=== PATIENT | female | born 1965 | race Caucasian/White ===

== ENCOUNTER 2025-05-28 14:25 | Outpatient (AMB) | payer OTHER, SELFPAY ==
[2025-05-28 15:11] VITALS: BMI 31.7
--- NOTE | 2025-05-28 15:11 | A.PHYSOV_ITS ---
Vital Signs 05/28/25 15:11 Height 5 ft 3 in Weight 179 lb BMI 31.7 Intake Visit Reasons: Left hip & left shoulder injections Intake Note: Patient is a 60 year old female here for left shoulder and left hip injections. Investigations Consultant Required: No Allergies silver Allergy (Unknown, Verified 05/28/25 15:14) Unknown [facility] Surgical History History of cancer surgery Social History Alcohol intake: current Alcohol intake frequency: holidays/special occasions only Patient Tobacco Use Status: Current someday Tobacco user Physical Exam Vital Signs: BMI result Body Mass Index 31.7 Office Procedures AMB Hip Injection AMB Hip Injection Procedure Details: Left Greater trochanteric bursal injection: The risks, benefits and complications of the left greater trochanteric bursitis/gluteal tendinopathy were discussed with the patient, including but not limited to infection, increased serum glucose, nerve damage, bleeding and pain. All questions were answered to the patient's satisfaction. Verbal consent was obtained. The patient was eager to proceed. Patient was cleansed with Betadine, ethyl chloride was then used to desensitize the skin. Using an a 25-gauge needle 40 mg of Kenalog and 3 mL 2% lidocaine were injected over the greater trochanter of maximal tenderness. The patient tolerated the procedure well without immediate complication. Postinjection instructions were given. Hip (Bursa) Injection - : Left All charges added?: Procedure code (CPT) selection complete AMB Shoulder Injection AMB Shoulder Injection Procedure Details: Left Subacromial injection Procedure: The patient was educated about risks, complications and benefits including but not limited to increased serum glucose, infection, nerve damage, bleeding, tendon/ligament damage and pain. We agree with a subacromial injection is the next best step in the treatment plan. Verbal consent was obtained. Using aseptic technique, the skin was cleansed w ith Betadine. Ethyl chloride was used to desensitize the skin. Using a posterior approach, 40 mg of Kenalog and 3 mL 2% lidocaine were injected using a 25-gauge inch and a half needle into the subacromial space. The patient tolerated the procedure well without immediate complication. Postinjection instructions were given. Shoulder Injection - : Left All charges added?: Procedure code (CPT) selection complete Office Meds Kenalog 40 mg/mL suspension for injection Performing Provider: HOLLY Green Performing Location: [facility] Administered by: HOLLY Green on 05/28/25 16:24 Dose Route Admin Location Dispensed Lot Number Expiration Date [facility] St[employer]ester 40 mg intrabursal 1 mL [id number] [employer] Total Dispensed Waste 1 mL 0 % lidocaine (PF) 20 mg/mL (2 %) injection solution Performing Provider: HOLLY Green Performing Location: [facility] Administered by: HOLLY Green on 05/28/25 16:24 Dose Route Admin Location Dispensed Lot Number Expiration Date [facility] St[employer] 60 mg intrabursal 5 mL [id number] [employer] Total Dispensed Waste 5 mL 40 % Kenalog 40 mg/mL suspension for injection Performing Provider: HOLLY Green Performing Location: [facility] Administered by: HOLLY Green on 05/28/25 16:29 Dose Route Admin Location Dispensed Lot Number Expiration Date [facility] [employer] 40 mg intrabursal 1 mL [id number] [employer] Total Dispensed Waste 1 mL 0 % lidocaine (PF) 20 mg/mL (2 %) injection solution Performing Provider: HOLLY Green Performing Location: [facility] Administered by: HOLLY Green on 05/28/25 16:29 Dose Route Admin Location Dispensed Lot Number Expiration Date [facility] [employer] 60 mg intrabursal 5 mL [id number] [employer] Total Dispensed Waste 5 mL 40 % Assessment & Plan Assessment & Plan (1) Impingement of left shoulder: Code(s): M25.812 - Other specified joint disorders, left shoulder Category: Medical (2) Trochanteric bursitis, left hip: Code(s): M70.62 - Trochanteric bursitis, left hip Category: Medical Plan Ms. Portillo is a 60-year-old female seen in evaluation today for left shoulder impingement as well as left hip bursitis. Today she consented to left hip bursal and subacromial injection. She was given post-injection instructions, recommend: Moist heat compresses for 15 minutes up to 5 times daily. Continue hip abduction exercises as well as rotator cuff exercises. Follow-up with our office as needed. Orders: Orders AMB Hip/Bursa Injection Today M70.62 - Trochanteric bursitis, left hip AMB Shoulder Injection Today M25.812 - Other specified joint disorders, left shoulder Coding Level of Care Code Procedure Only Diagnoses Impingement of left shoulder M25.812 Trochanteric bursitis, left hip M70.62 CPT Codes AMB Hip Injection - Hip/Bursa Injection - 07923: Left ([id number]) AMB Shoulder Injection - Hip/Bursa Injection - 58907: Left ([id number])
--- OUTSIDE RECORDS SUMMARY | 2025-05-28 18:42 | XMS_ITS | Encounter Summary ---
Author Organization [facility] Address [address] [place] [address] Care Team Providers Care Senior Analyst Name Role Phone Reyna Donis MD Primary Care Provider Encounter Details Date Type Department Care Team (Late st Contact Info) Description 04/26/2025 Results Follow-Up Adult [facility] [address] [place] [phone] Mckinley Garcia, RN Social History Tobacco Use Types Packs/Day Years Used Date Smoking Tobacco: Former Cigarettes 2.7 0 02/15/2012 - 11/11/2014 Smokeless Tobacco: Never Alcohol Use Standard Drinks/Week Comments Not Currently 0 (1 standard drink = 0.6 oz pur e alcohol) Housing Instability Answer Date Recorde d Are you worried that in the next 2 months you may not have stable housing? No 11/15/2024 Food Access & Nutrition Answer Date Rec orded Do you have access to a vari ety of food including fruits and vegetables? Yes 11/15/2024 Access to Healthcare Answer Date Record ed Within the last 3 months, ho w many times did you visit the emergency department for your medical care? 0 11/15/2024 Health Literacy Answer Date Recorded How often do you need to hav e someone help you when you read instructions, pamphlets, or other written material from your doctor or pharmacy? Never 11/15/2024 Caregiver: How often do you need to have someone help you when you read instructions, pamphlets, or other written material from your doctor or pharmacy? Not on file 11/15/2024 Financial Risk Answer Date Recorded How hard is it for you to pa y for the very basics like food, housing, medical care, and air conditioning / heating? Not asked 11/15/2024 Transportation Answer Date Recorded Has the lack of transportati on kept you from meetings, work, or from getting things needed for daily living? No Has the lack of transportati on kept you from medical appointments or from getting medications? No 11/15/2024 Social Isolation Answer Date Recorded How often do you feel lonely or isolated from th ose around you? Never 11/15/2024 Food Risk Answer Date Recorded Within the past 12 months we worried whether our food would run out before we got money to buy more. Not asked 11/15/2024 Within the past 12 months th e food we bought just didn't last and we didn't have money to get more. Not asked 11/15/2024 Dependent Care Answer Date Recorded Do you need help finding or paying for care for your loved ones. For example, director child development center or elderly care for an older adult? No 11/15/2024 Education Answer Date Recorded Do you think completing more education or training, like finishing a GED, going to college, or learning a trade, would be helpful for you? No 11/15/2024 Employment and Income Answer Date Recor ded During the last four weeks, have you been actively looking for work? No 11/15/2024 Living Situation Answer Date Recorded What is your living situation? Unrecognized valu e 11/15/2024 Interpersonal Safety Answer Date Record ed Physical Abuse Unrecognized value 11/30/2024 Verbal Abuse Unrecognized value 11/30/2024 Comments No Sex and Gender Information Value Date Recorded Sex Assigned at Not on file Legal Sex Female 10:40 AM EST Gender Identity Not on file Sexual Orientation Not on file documented as of this encounter Plan of Treatment Upcoming Encounters Date Type Department Care Team (Late st Contact Info) Description 06/25/2025 2:30 PM EST Office Visit Adult Medicine - [facility] [address] [place] [phone] Reyna Donis MD [address] [place] [address] documented as of this encounter Visit Diagnoses Not on filedocumented in this encounter Additional Health Concerns Assessment Noted Time PHQ-9 Depression Total Score: 0 11/16/19 25 7:00 PM EDT documented as of this encounter Care Teams Senior Analyst Relationship Specialty Start Date End Date Reyna Donis MD [address] [address] PCP - General Internal Medicine 03/02/22 documented as of this encounter
--- OUTSIDE RECORDS SUMMARY | 2025-05-28 18:42 | XMS_ITS | Clinical Summary ---
Author Organization [facility] [address] [facility] lding Address [address] [place] [address] Phone Care Team Providers Care Activity Leader Name Role Phone Reyna Donis MD Primary Care Provider Allergies Active Allergy Reactions Criticality Noted Date Comments Gold Keratinate Rash Low 09/30/2015 Ibuprofen GI intolerance Low 11/19/2024 Silver Nitrate Rash Low 09/30/2015 Medications hydrOXYzine HCL (ATARAX) 25 mg tabletIndicati ons:Anxiety Take 1 tablet (25 mg total) by mouth at bedtime as needed for anxiety. 90 each 5 Active valsartan (DIOVAN) 80 mg tablet TAKE 1 TABLET BY MOUTH EVERY DAY 90 tablet 5 Active valsartan (DIOVAN) 80 mg tablet TAKE 1 TABLET BY MOUTH 1 TIME EACH DAY. 90 tablet 5 05/06/20 25 Discontinued Active Problems Problem Noted Date Diagnosed Date Chronic pain of both shoulders 03/27/2025 Osteopenia 11/27/2021 Overview (02/21/2024): DXA 07/04- tscore spine -2.0, hip Degenerative disc disease, lumbar 07/23/2020 Lumbar radiculopathy 07/23/2020 Lumbar spondylosis 07/23/2020 Hyperlipidemia 06/22/2019 Overview (02/21/2024): 06/2019 ASCVD risk 2.5% Obesity (BMI 30.0-34.9) 11/26/2018 Essential hypertension 11/21/2018 Situational anxiety 09/02/2017 AV block, 1st degree 07/18/2017 Lung nodule 10/03/2015 Overview (02/21/2024): CT chest 12/02- stable nodule x 4 years no further follow up recommended per radiology Found on PET scan- one on each side. One on left was biopsied in 2012 and was negative for cancer Vaginal polyp 10/03/2015 Overview (02/21/2024): Polyps removed recently Following removal found to have contact dermatitis to silver nitrate Resolved Problems Problem Noted Date Diagnosed Date Resolved Date Pain in right foot 09/19/2024 5 Bunion, right foot 09/19/2024 5 Hav (hallux abducto valgus), right 09/19/2024 11/30/2024 Encounters Date Type Department Care Team Description 04/26/2025 Results Follow-Up [facility] [address] [place] [address] Mckinley Garcia RN 04/23/2025 3:00 PM EST Ancillary Procedure [facility] [address] [facility] [address] [place] [address] Palpitations 03/27/2025 3:30 PM EDT Office Visit Adult Medicine [facility] [address] [place] [address] Osvaldo Jha PA Essential hypertension (Primary Dx); Hyperlipidemia, unspecified hyperlipidemia type; Chronic pain of both shoulders; Status post bunionectomy; Palpitations; Needs flu shot; Anxiety from Last 3 Months Immunizations Immunization Administration Dates Next Due COVID-19 (Moderna/Spikevax) 12yo and older 03/31/2023 Influenza Quadravalent, MDCK , 0.5ml, preservative free (Flucelvax) 6mo and older 03/15/2018 Influenza Quadrivalent, 0.5m l, preservative free (Fluarix; FluLaval; Fluzone) ages 6mo and older (Afluria) 3yo and older 03/31/2023,03/05/2022,03/22/2021 Influenza Quadrivalent, with preservative (Fluzone; Afluria) 6mo and older 04/05/2017 Influenza trivalent, 0.5mL, preservative free (Fluarix; FluLaval; Fluzone) ages 6mo and older (Afluria) 3 years and older 03/12/2024,03/31/2023,03/05/2022,2020,03/27/2020,03/27/2019,04/05/2017 Influenza trivalent, MDCK, 0 .5mL, preservative free (Flucelvax) 6mo and older 03/27/2025 Moderna SARS-CoV-2 COVID-19, mRNA, LNP-S, preservative free 03/05/2022 Pfizer (ages 12 & older) Biv alent, COVID-19 03/05/2022 Pfizer (ages 12 & older) MIGUEL ANGEL S-CoV-2 COVID-19, mRNA, LNP-S, nic-sucrose, preservative free 10/03/2021 Tdap Tetanus diptheria acell ular pertussis (Boostrix; Adacel) 7yo and older 02/27/2021 Surgical History Surgery Date Site/Laterality Comments HYSTERECTOMY PROCEDURE: HISTORICAL HYSTERECTOMY; COMMENT: salphingoophorectlony b/l TONSILLECTOMY PROCEDURE: HISTORICAL TONSILLECTOMY BREAST LUMPECTOMY PROCEDURE: ---- BREAST LUMP BIOPSY ----; COMMENT: negative for cancer COLONOSCOPY PROCEDURE: HISTORICAL COLONOSCOPY; COMMENT: around late 28 yrs and was negative for abdominal pain COLONOSCOPY 10/30/15 PROCEDURE: HISTORICAL COLONOSCOPY; COMMENT: Diverticulosis, hemorrhoids, otherwise normal. Rpt in 10 years BREAST BIOPSY 16 years ago Right PROCEDURE: BX BREAST; PERC NEEDLE CORE W/IMAG GUID; COMMENT: neg Medical History Medical History Date Comments History of cervical cancer 09/04/2015 DX:Hi story of cervical cancer; COMMENT: Apr 2013, had radical hysterectomy- done by Dr Sethi. History of other specified c onditions presenting hazards to health DX:History of other speci fied conditions presenting hazards to health; COMMENT: cervical AV block, 1st degree 07/18/2017 DX:AV block , 1st degree Hypertension 11/21/2018 DX:Hypertension Cancer ([facility]/HCC V24, CMS/HCC V28) Bunion of right foot Family History Medical History Relation Name Comments Crohn's disease Daughter 1 Brittany sudden Other: Other Daughter 1 Birttany Other: drug overdose Son 1 Blindness Neg Hx Breast cancer Neg Hx Cataracts Neg Hx Glaucoma Neg Hx Macular degeneration Neg Hx Strabismus Neg Hx Relation Name Status Comments Daughter 1 Brittany Daughter 2 Alive Father [place], in his 40s from [place] Mother at 84 yrs, stomach cancer Son 1 Son 2 Alive Social History Tobacco Use Types Packs/Day Years Used Date Smoking Tobacco: Former Cigarettes 2.7 0 02/15/2012 - 11/11/2014 Smokeless Tobacco: Never Tobacco Cessation:Counseling Given: Not Answered Alcohol Use Standard Drinks/Week Comments Not Currently [...] care for your loved ones. For example, childcare director or elderly care for an older adult? [...] on file Sexual Orientation Not on file Last Filed Vital Signs Vital Sign Reading Time Taken Comments Blood Pressure 137/87 03/27/2025 3:17 PM EDT Pulse 80 03/27/2025 3:17 PM EDT Temperature 36.4 C (97.5 F) 03/27/2025 3:17 PM EDT Respiratory Rate 18 11/30/2024 8:49 AM EDT Oxygen Saturation 99% 11/30/2024 9:34 AM EDT Inhaled Oxygen Concentration - - Weight 80.7 kg (178 lb) 03/27/2025 3:17 PM EDT Height 160 cm (5' 3 ) 03/27/2025 3:17 PM EDT Body Mass Index 31.53 03/27/2025 3:17 PM EDT Plan of Treatment Upcoming Encounters Date Type Department Care Team (Late st Contact Info) Description 06/25/2025 2:30 PM EST Office Visit Adult Medicine - [place] [address] [place] [address] Reyna Donis MD [address] [place] [address] Health Maintenance Due Date Last Done Comments Zoster Vaccines (1 of 2) 1982 Pneumococcal Vaccine: 50+ Years (1 of 1 - PCV) 2013 HIV Screening 05/22/2022 COVID-19 Vaccine ( season) 2025 03/31/2023, 03/05/2022, 03/05/2022, Additional history exists Hypertension/CHF/CAD Annual BMP Blood Test 06/18/2025 06/18/2024, 06/15/2023 Breast Cancer Screening 09/21/2025 09/22/19 24, 03/20/2022, 03/20/2022, Additional history exists Colorectal Cancer Screening: Colonoscopy 10/29/2025 10/30/2015 Social Influencers of Health Screening 11/15/2025 11/15/2024 Cervical Cancer Screening: HPV 06/23/2027 06/23/2022 Cholesterol Screening (Lipid Panel) 06/18/2029 06/18/2024, 12/14/2023, 12/14/2023 DTaP,Tdap,and Td Vaccines (2 - Td or Tdap) 02/27/2031 02/27/2021 RSV Immunization Adult Patients (1 - 1-dose 75+ series) 2038 Hepatitis C Screening Completed 10/03/2015 Depression Screening Completed 11/15/2024 Influenza Vaccine Completed 03/27/2025, , 03/31/2023, Additional history exists HIB Vaccines Aged Out No longer eligi ble based on patient's age to complete this topic HPV Vaccines Aged Out No longer eligi ble based on patient's age to complete this topic Hepatitis A Vaccines Aged Out No long er eligible based on patient's age to complete this topic Hepatitis B Vaccines Aged Out No long er eligible based on patient's age to complete this topic IPV Vaccines Aged Out No longer eligi ble based on patient's age to complete this topic MMR Vaccines Aged Out No longer eligi ble based on patient's age to complete this topic Meningococcal ACWY Vaccine Aged Out N o longer eligible based on patient's age to complete this topic Meningococcal B Vaccine Aged Out No l onger eligible based on patient's age to complete this topic RSV Immunization Patients Under 20 months Aged Out No longer eligible based on patient's age to complete this topic Varicella Vaccines Aged Out No longer eligible based on patient's age to complete this topic Medical Devices Implanted Type Area Engineering Documentation Specialist Device Identifier Shelf Expiration Date Model / Serial / Lot Screw 3.0mm Headless Length 32mm - Sna - [id number] Implanted:Qty: 1 on 11/30/2024 by Zachery Patino DPM at [facility] Internal and External Fixation Right: First Toe [employer]ERNA [employer]UMA [id number] / NA / NA Procedures Procedure Name Priority Date/Time Associated Diagnosis Comments CARDIAC HOLTER MONITOR (REPORT GENERATED IN HOUSE) Routine 04/23/2025 2:43 PM EST Palpitations COMPREHENSIVE METABOLIC PANEL Routine 06/18/2024 4:10 PM EST Adult general medical examination Hyperlipidemia, unspecified hyperlipidemia type Essential hypertension LIPID PANEL WITH REFLEX TO DIRECT LDL Routine 06/18/2024 4:10 PM EST Adult general medical examination Hyperlipidemia, unspecified hyperlipidemia type Essential hypertension SHALINI SCREENING DIGITAL Routine 09/22/2023 2:28 PM EDT Encounter for screening mammogram for malignant neoplasm of breast HM HPV Routine 06/23/2022 COLONOSCOPY Routine 10/30/2015 HEPATITIS C SCREENING Routine 10/03/2015 from Last 3 Months or Most Recently Relevant to Health Maintenance Results * CARDIAC HOLTER MONITOR (REPORT GENERATED IN HOUSE) (04/23/2025 2:43 PM EST) Anatomical Region Laterality Modality Cardiac Diagnost ic Narrative 04/26/2025 11:28 AM EST [facility] DIAGNOSTIC [facility]ING DEPARTMENT [address] [place] [address], [address] [address] TEL: FAX: Type of Test: 48 Hour Holter Monitor Date of Test: 04/23/2025 Ordering Provider: HOLLY Caruso Reason for Test: Palpitations 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 2: Rare PACs, aberrant beats, atrial pairs, and atrial runs lasting up to 5 beats with rates up to 148 bpm. 3: Rare PVCs. 4: No significant pause, longest R-R was 1.4 seconds at 3:23 AM. 5: Diary returned with no symptoms noted. Impression: Normal sinus rhythm with rare PACs and 1 5 beat atrial run. No atrial fibrillation. Rare PVCs. No pauses or bradycardia. Ovsaldo BARRERA [facility] PROCEDURE S Final Result * (ABNORMAL) Lipid panel with reflex to direct LDL (06/18/2024 4:10 PM EST) Cholesterol 258(H) 0 - 200 mg/dL LAB CHEMISTRY METHOD 06/18/2024 6:38 PM [facility] Triglycerides 85 0 - 150 mg/dL LAB CHEMISTRY METHOD 06/18/2024 6:38 PM [facility] HDL 71 >=40 mg/dL LAB CHEMISTRY METHOD 06/18/2024 6:38 PM [facility] LDL Calculated 170(H) 0 - 100 mg/dL LAB CHEMISTRY METHOD 06/18/2024 6:38 PM [facility] VLDL Cholesterol Tre 17 mg/dL LAB CHEMISTRY METHOD 06/18/2024 6:38 PM [facility] Non HDL Chol. (LDL+VLDL) 187(H) <145 mg/dL LAB CHEMISTRY METHOD 06/18/2024 6:38 PM [facility] Chol/HDL Ratio 3.6 0.0 - 4.4 LAB CHEMISTRY METHOD 06/18/2024 6:38 PM [facility] Blood Venous blood specimen / Unknown Venipuncture / Unknown 06/18/2024 4:10 PM EST 06/18/2024 4:10 PM EST Osvaldo BARRERA LAB BLOOD ORDERABLES Final Re sult [facility] [address] [place] [address], * (ABNORMAL) Comprehensive metabolic panel (06/18/2024 4:10 PM EST) Sodium 135 133 - 145 mmol/L LAB CHEMISTRY METHOD 06/18/2024 6:38 PM EST [facility] Potassium 3.8 3.5 - 5.5 mmol/L LAB CHEMISTRY METHOD 06/18/2024 6:38 PM [facility] Chloride 103 96 - 110 mmol/L LAB CHEMISTRY METHOD 06/18/2024 6:38 PM [facility] CO2 28 21 - 32 mmol/L LAB CHEMISTRY METHOD 06/18/2024 6:38 PM [facility] Anion Gap 4 3 - 11 LAB CHEMISTRY METHOD 06/18/2024 6:38 PM [facility] Glucose 103(H) 70 - 100 mg/dL LAB CHEMISTRY METHOD 06/18/2024 6:38 PM [facility] BUN 14 5 - 25 mg/dL LAB CHEMISTRY METHOD 06/18/2024 6:38 PM [facility] Creatinine 0.78 0.50 - 1.10 mg/dL LAB CHEMISTRY METHOD 06/18/2024 6:38 PM [facility] eGFR 87 >=60 mL/min/1. 73m2 LAB CHEMISTRY METHOD 06/18/2024 6:38 PM [facility] Comment:Calculation based on the Chronic Kidney Disease Epidemiology Collaboration (CKD-EPI) equation refit without adjustment for race. BUN/Creatinine Ratio 17.9 LAB CHEMISTRY METHOD 06/18/2024 6:38 PM [facility] Calcium 9.3 8.5 - 10.5 mg/dL LAB CHEMISTRY METHOD 06/18/2024 6:38 PM [facility] AST (SGOT) 17 10 - 42 unit/L LAB CHEMISTRY METHOD 06/18/2024 6:38 PM [facility] ALT (SGPT) 31 10 - 60 unit/L LAB CHEMISTRY METHOD 06/18/2024 6:38 PM [facility] Alkaline Phosphatase 50 42 - 121 unit/L LAB CHEMISTRY METHOD 06/18/2024 6:38 PM [facility] Total Protein 6.7 6.0 - 8.0 g/dL LAB CHEMISTRY METHOD 06/18/2024 6:38 PM EST [facility] Albumin 3.9 3.2 - 5.0 g/dL LAB CHEMISTRY METHOD 06/18/2024 6:38 PM [facility] Total Bilirubin 1.2 0.0 - 1.4 mg/dL LAB CHEMISTRY METHOD 06/18/2024 6:38 PM [facility] Blood Venous blood specimen / Unknown Venipuncture / Unknown 06/18/2024 4:10 PM EST 06/18/2024 4:10 PM EST us Osvaldo BARRERA LAB BLOOD ORDERABLES Final Re sult [facility] [address] [place] [address], * SHALINI SCREENING DIGITAL (09/22/2023 2:28 PM EDT) Anatomical Region Laterality Modality Mammography 09/21/2023 2:18 PM EDT Narrative 09/22/2023 2:28 PM EDT [facility] Diagnostic Imaging Department [address] [place] [address] Patient: KYA CEDENO D.O.B./Age/Sex: 1965 - 58 - F Unit#: [id number] Location/Status: SPDIMAM/REG CLI Mnemonic/Ordering Site: [facility] Ordering Physician: MAGGIE NICHOLE CNM [facility] Screening Digital - 09/21/23 - 1435 Report Status:Signed EXAM: [facility] Screening Digital EXAM DATE AND TIME: 09/21/2023 2:59 PM HISTORY: Annual screening COMPARISON: Multiple exams dating back to 2015 TECHNIQUE: Bilateral digital breast tomosynthesis was performed in the CC and MLO projections. Computer aided detection with [employer] 3D 3.1 was employed. TISSUE DENSITY: b. There are scattered areas of fibroglandular density. FINDINGS: No suspicious masses, grouped microcalcifications, or areas of architectural distortion are seen. The skin and vascularity are unremarkable. IMPRESSION: Stable mammographic appearance of the breasts. No evidence of malignancy is seen. A negative mammogram in the presence of a clinically suspicious palpable abnormality does not preclude the possibility of malignancy or alter the indications for biopsy. BI-RADS: Category 1: Negative RECOMMENDATION(S): 1: Routine screening mammogram BILATERAL in 1 year. 3341F, 7025F Dictating Physician: MAE DIOR MD Electronically Signed by: MAE DIOR MD Dic Date/Time: 09/22/23 1427 Sign date/Time: 09/22/23 1428 Procedure Note Mea Dior MD - 01/30/2024 [facility] Diagnostic Imaging Department [address] [place] [id number] Patient: KYA CEDENO /Age/Sex: 1965 - 58 - F Unit#: [id number] Location/Status: SPDIMAM/REG CLI Mnemonic/Ordering Site: [facility] Ordering Physician: MAGGIE NICHOLE CNM [facility] Screening Digital - 09/21/23 - 1435 Report Status:Signed EXAM: [facility] Screening Digital EXAM DATE AND TIME: 09/21/2023 2:59 PM HISTORY: Annual screening COMPARISON: Multiple exams dating back to 2015 TECHNIQUE: Bilateral digital breast tomosynthesis was performed in the CCand MLO projections. Computer aided detection with [employer] 3D 3.1was employed. TISSUE DENSITY: b. There are scattered areas of fibroglandular density. FINDINGS: No suspicious masses, grouped microcalcifications, or areas ofarchitectural distortion are seen. The skin and vascularity are unremarkable. IMPRESSION: Stable mammographic appearance of the breasts. No evidence of malignancyis seen. A negative mammogram in the presence of a clinically suspicious palpable abnormality does not preclude the possibility of malignancy or alter the indications for biopsy. BI-RADS: Category 1: Negative RECOMMENDATION(S): 1: Routine screening mammogram BILATERAL in 1 year. 3341F, 7033F Dictating Physician: MAE DIOR MD Electronically Signed by: MAE DIOR MD Dic Date/Time: 09/22/23 1427 Sign date/Time: 09/22/23 1428 Maggie Nichole CNM IMG BI PROCEDURES Final Resul t * Cervical Cancer Screening: HPV (06/23/2022) Cervical Cancer Screening: HPV Negative, Abstracted Historical Provider HEALTH MAINTENANCE Final Result * Colonoscopy (10/30/2015) Colonoscopy 10 yr fu Anatomical Region Laterality Modality Other Historical Provider HEALTH MAINTENANCE Final Result * Hepatitis C Screening (10/03/2015) Hepatitis C Screening negative Historical Provider HEALTH MAINTENANCE Final Result from Last 3 Months or Most Recently Relevant to Health Maintenance Insurance [facility] [address] [place] [address] Advance Directives * Full Code - Default (Latest Code Status on File) Date Activated Date Inactivated Comments 11/30/2024 6:02 AM 11/30/2024 12:38 PM This is ord er is used when code status has not been discussed with the patient, or code status is otherwise unknown/unconfirmed To update the patient's code status, place a code status order. Do not modify or discontinue any currently active code status orders. Care Teams Activity Leader Relationship Specialty Start Date End Date Reyna Donis MD [address] [place] [address] [address] [place] [address] PCP - General Internal Medicine 03/02/22
== END 2025-05-28 16:21 | disposition home or self-care (01) ==
LOC: HO.HPHYS 14:26
PROVIDERS: PCP Family Medicine; Visit Provider Physician Assistant
DX: M25.812 Other specified joint disorders, left shoulder (principal); M70.62 Trochanteric bursitis, left hip
CPT/HCPCS: 20610

== ENCOUNTER → 2025-05-28 14:25 | Outpatient (BNVA) | payer OTHER, SELFPAY | PROVIDERS: PCP Family Medicine; Visit Provider Physician Assistant | DX: M25.812 Other specified joint disorders, left shoulder (principal); M70.62 Trochanteric bursitis, left hip | CPT/HCPCS: 20610; J2003; J3301 ==

== ENCOUNTER 2025-06-12 09:41 | Outpatient (AMB) | payer OTHER, SELFPAY ==
[2025-06-12 09:57] VITALS: BMI 31.7
--- NOTE | 2025-06-12 09:57 | A.PHYSOV_ITS ---
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: No Allergies silver Allergy (Unknown, Verified 06/12/25 09:58) Unknown REPLACED BY [facility] Surgical History History of cancer surgery Social History Alcohol intake: current Alcohol intake frequency: holidays/special occasions only Patient Tobacco Use Status: Current someday Tobacco user Physical Exam Vital Signs: BMI result Body Mass Index 31.7 Office Procedures AMB Hip Injection AMB Hip Injection Procedure Details: Right Greater trochanteric bursal injection: The risks, benefits and complications of the right greater trochanteric bursitis/gluteal tendinopathy were discussed with the patient, including but not limited to infection, increased serum glucose, nerve damage, bleeding and pain. All questions were answered to the patient's satisfaction. Verbal consent was obtained. The patient was eager to proceed. Patient was cleansed with Betadine, ethyl chl oride was then used to desensitize the skin. Using an a 25-gauge needle 40 mg of Kenalog and 3 mL 2% lidocaine were injected over the greater trochanter of maximal tenderness. The patient tolerated the procedure well without immediate complication. Postinjection instructions were given. Hip (Bursa) Injection - : Right All charges added?: Procedure code (CPT) selection complete AMB Shoulder Injection AMB Shoulder Injection Procedure Details: Right Subacromial injection Procedure: The patient was educated about risks, complications and benefits including but not limited to increased serum glucose, infection, nerve damage, bleeding, tendon/ligament damage and pain. We agree with a subacromial injection is the next best step in the treatment plan. Verbal consent was obtained. Using aseptic technique, the skin was cleansed with Betadine. Ethyl chloride was used to desensitize the skin. Using a posterior approach, 40 mg of Kenalog and 3 mL 2% lidocaine were injected using a 25-gauge inch and a half needle into the subacromial space. The patient tolerated the procedure well without immediate complication. Postinjection instructions were given. Shoulder Injection - : Right All charges added?: Procedure code (CPT) selection complete Office Meds Kenalog 40 mg/mL suspension for injection Performing Provider: HOLLY Green Performing Location: [facility] Administered by: HOLLY Green on 06/12/25 12:49 Dose Route Admin Location Dispensed Lot Number Expiration Date [facility] Building Maintenance Worker 40 mg intrabursal 1 mL [id number] [employer] Total Dispensed Waste 1 mL 0 % lidocaine (PF) 20 mg/mL (2 %) injection solution Performing Provider: HOLLY Green Performing Location: [facility] Administered by: HOLLY Green on 06/12/25 12:49 Dose Route Admin Location Dispensed Lot Number Expiration Date [facility] Building Maintenance Worker 60 mg intrabursal 5 mL [id number] [employer] Total Dispensed Waste 5 mL 40 % Kenalog 40 mg/mL suspension for injection Performing Provider: HOLLY Green Performing Location: [facility] Administered by: HOLLY Green on 06/12/25 12:49 Dose Route Admin Location Dispensed Lot Number Expiration Date [facility] Building Maintenance Worker 40 mg intrabursal 1 mL [id number] [employer] Total Dispensed Waste 1 mL 0 % lidocaine (PF) 20 mg/mL (2 %) injection solution Performing Provider: HOLLY Green Performing Location: [facility] Administered by: HOLLY Green on 06/12/25 12:49 Dose Route Admin Location Dispensed Lot Number Expiration Date [facility] Building Maintenance Worker 60 mg intrabursal 5 mL [id number] [employer] Total Dispensed Waste 5 mL 40 % Assessment & Plan Assessment & Plan (1) Impingement of right shoulder: Code(s): M25.811 - Other specified joint disorders, right shoulder Category: Medical (2) Trochanteric bursitis, right hip: Code(s): M70.61 - Trochanteric bursitis, right hip Category: Medical Plan Ms. Anaya is a 60-year-old female seen in evaluation today for right shoulder impingement as well as right hip bursitis. Today she consented to repeat subacromial and hip bursal injection. She was given post-injection i nstructions, recommend: Moist heat compresses for 15 minutes up to 5 times daily. She should avoid repetitive overhead activities. Continue abduction exercises. Follow-up with our office as needed. Thank you for allowing me to participate in the care of your patient. Orders: Orders AMB Shoulder Injection Today M25.811 - Other specified joint disorders, right shoulder AMB Hip/Bursa Injection Today M70.61 - Trochanteric bursitis, right hip Coding Level of Care Code Procedure Only Diagnoses Impingement of right shoulder M25.811 Trochanteric bursitis, right hip M70.61 CPT Codes AMB Hip Injection - Hip/Bursa Injection - 65927: Right ([id number]) AMB Shoulder Injection - Hip/Bursa Injection - 06558: Right ([id number])
--- OUTSIDE RECORDS SUMMARY | 2025-06-12 10:13 | XMS_ITS | Clinical Summary ---
Author Organization [facility] [address] [facility] lding Address [address] [facility] [place] [address] Phone Care Team Providers Care Furnace Setter Name Role Phone Reyna Donis MD Primary Care Provider Allergies Active Allergy Reactions Criticality Noted Date Comments Gold Keratinate Rash Low 09/30/2015 Ibuprofen GI intolerance Low 11/19/2024 Silver Nitrate Rash Low 09/30/2015 Medications hydrOXYzine HCL (ATARAX) 25 mg tabletIndicatio ns:Anxiety Take 1 tablet (25 mg total) by mouth at bedtime as needed for anxiety. 90 each 03/27/2025 Active valsartan (DIOVAN) 80 mg tablet TAKE 1 TABLET BY MOUTH EVERY DAY 90 tablet 05/06/2025 Active Active Problems Problem Noted Date Diagnosed Date [...] Team Description 04/26/2025 Results Follow-Up [facility] [address] [phone] Mckinley Garcia RN 04/23/2025 3:00 PM EST Ancillary Procedure [facility] [address] [place] [address] Palpitations 03/27/2025 3:30 PM EDT Office Visit Adult Medicine [address] [phone] Osvaldo Jha PA Essential hypertension (Primary Dx); [...] , 1st degree Hypertension 11/21/2018 DX:Hypertension Cancer ([facility] V24, [facility] V28) Bunion of right foot Family History Medical History Relation Name Comments Crohn's disease Daughter 1 Brittany sudden Other: Other Daughter 1 Brittany Other: drug overdose Son 1 Blindness Neg [...] Record ed Within the last 3 months, terry florez many times did you visit the emergency [...] care for your loved ones. For example, children's literature professor or elderly care for an older adult? [...] PM EST Office Visit Adult Medicine - [place] [address] [place] [address] Reyna Donis MD [address] [place] [address] Health Maintenance Due Date Last Done Comments [...] this topic Medical Devices Implanted Type Area Acting Teacher Device Identifier Shelf Expiration Date Model / Serial / Lot Screw 3.0mm Headless Length 32mm - Sna - [id number] Implanted:Qty: 1 on 11/30/2024 by Zachery Patino DPM at [facility] Internal and External Fixation Right: First Toe [employer] [id number] / NA / NA Procedures Procedure Name [...] examination Hyperlipidemia, unspecified hyperlipidemia type Essential hypertension [facility] SCREENING DIGITAL Routine 09/22/2023 2:28 PM EDT Encounter for screening mammogram for malignant neoplasm of breast HPV Routine 06/23/2022 COLONOSCOPY Routine 10/30/2015 HEPATITIS C SCREENING Routine 10/03/2015 from Last 3 Months or Most Recently Relevant to Health Maintenance Results * CARDIAC HOLTER MONITOR (REPORT GENERATED IN HOUSE) (04/23/2025 2:43 PM EST) Anatomical Region Laterality Modality Cardiac Diagnost ic Narrative 04/26/2025 11:28 AM EST [facility] DI[facility]PARTMENT [address] [place] [address], [place] [address], [place] [address] TEL: FAX: Type of Test: 48 Hour Holter Monitor Date of Test: 04/23/2025 Ordering Provider: HOLLY Caruso Reason for Test: Palpitations [facility] Regulatory Affairs Spec Findings: 1: Normal Sinus Rhythm. 2: Rare [...] fibrillation. Rare PVCs. No pauses or bradycardia. Osvaldo BARRERA [facility] CARDIAC SERVICES PROCEDURE S Final Result * (ABNORMAL) Lipid panel with reflex to direct LDL (06/18/2024 4:10 PM EST) Cholesterol 258(H) 0 - 200 mg/dL LAB CHEMISTRY METHOD 06/18/2024 6:38 PM EST [facility] Triglycerides 85 0 - 150 mg/dL LAB CHEMISTRY METHOD 06/18/2024 6:38 PM EST [facility] HDL 71 >=40 mg/dL LAB CHEMISTRY METHOD 06/18/2024 6:38 PM EST [facility] LDL Calculated 170(H) 0 - 100 mg/dL LAB CHEMISTRY METHOD 06/18/2024 6:38 PM EST [facility] VLDL Cholesterol Tre 17 mg/dL LAB CHEMISTRY METHOD 06/18/2024 6:38 PM EST [facility] Non HDL Chol. (LDL+VLDL) 187(H) <145 mg/dL LAB CHEMISTRY METHOD 06/18/2024 6:38 PM EST [facility] Chol/HDL Ratio 3.6 0.0 - 4.4 LAB CHEMISTRY METHOD 06/18/2024 6:38 PM [facility] Blood Venous blood specimen / Unknown Venipuncture / Unknown 06/18/2024 4:10 PM EST 06/18/2024 4:10 PM EST Osvaldo BARRERA LAB BLOOD ORDERABLES Final Re sult [facility] [address] [place] [address], [place] [phone] * (ABNORMAL) Comprehensive metabolic panel (06/18/2024 4:10 PM EST) Sodium 135 133 - 145 mmol/L LAB CHEMISTRY METHOD 06/18/2024 6:38 PM [facility] Potassium 3.8 3.5 - 5.5 mmol/L LAB CHEMISTRY METHOD 06/18/2024 6:38 PM [facility] Chloride 103 96 - 110 mmol/L LAB CHEMISTRY METHOD 06/18/2024 6:38 PM [facility] CO2 28 21 - 32 mmol/L LAB CHEMISTRY METHOD 06/18/2024 6:38 PM [facility] Anion Gap 4 3 - 11 LAB CHEMISTRY METHOD 06/18/2024 6:38 PM [facility] Glucose 103(H) 70 - 100 mg/dL LAB CHEMISTRY METHOD 06/18/2024 6:38 PM [facility] BUN 14 5 - 25 mg/dL LAB CHEMISTRY METHOD 06/18/2024 6:38 PM [facility] Creatinine 0.78 0.50 - 1.10 mg/dL LAB CHEMISTRY METHOD 06/18/2024 6:38 PM [facility] eGFR 87 >=60 mL/min/1. 73m2 LAB CHEMISTRY METHOD 06/18/2024 6:38 PM [facility] Comment:Calculation based on the Chronic Kidney Disease Epidemiology Collaboration (CKD-EPI) equation refit without adjustment for race. BUN/Creatinine Ratio 17.9 LAB CHEMISTRY METHOD 06/18/2024 6:38 PM [facility] Calcium 9.3 8.5 - 10.5 mg/dL LAB CHEMISTRY METHOD 06/18/2024 6:38 PM [facility] AST (SGOT) 17 10 - 42 unit/L LAB CHEMISTRY METHOD 06/18/2024 6:38 PM [facility] ALT (SGPT) 31 10 - 60 unit/L LAB CHEMISTRY METHOD 06/18/2024 6:38 PM EST [facility] Alkaline Phosphatase 50 42 - 121 unit/L LAB CHEMISTRY METHOD 06/18/2024 6:38 PM EST [facility] Total Protein 6.7 6.0 - 8.0 g/dL LAB CHEMISTRY METHOD 06/18/2024 6:38 PM EST [facility] Albumin 3.9 3.2 - 5.0 g/dL LAB CHEMISTRY METHOD 06/18/2024 6:38 PM EST [facility] Total Bilirubin 1.2 0.0 - 1.4 mg/dL LAB CHEMISTRY METHOD 06/18/2024 6:38 PM [facility] Blood Venous blood specimen / Unknown Venipuncture / Unknown 06/18/2024 4:10 PM EST 06/18/2024 4:10 PM EST Osvaldo BARRERA LAB BLOOD ORDERABLES Final Re sult [facility] [address] [place] [address], * SHALINI SCREENING DIGITAL (09/22/2023 2:28 PM EDT) Anatomical Region Laterality Modality Mammography 09/21/2023 2:18 PM EDT Narrative 09/22/2023 2:28 PM EDT [facility] Diagnostic Imaging Department [address] [place] [address] Patient: KYA CEDENOO.B./Age/Sex: 1965 - 58 - F Unit#: [id number] Location/Status: SPDIMAM/REG CLI Mnemonic/Ordering Site: [facility] Ordering Physician: MAGGIE NICHOLE CNM [facility] Screening Digital - 09/21/23 - 1435 Report Status:Signed EXAM: [facility] Screening Digital EXAM DATE AND TIME: 09/21/2023 2:59 PM HISTORY: Annual screening COMPARISON: Multiple exams dating back to 2015 TECHNIQUE: Bilateral digital breast tomosynthesis was performed in the CC and MLO projections. Computer aided detection with NUOFFER 3D 3.1 was employed. TISSUE DENSITY: b. [...] Signed by: MAE DIOR MD Dic Date/Time: 09/22/231426 Sign date/Time: 09/22/231427 Procedure Note Mae Dior MD - 01/30/2024 [facility] Diagnostic Imaging Department [address] [place], [place] [id number] Patient: KYA CEDENO/Age/Sex: 1965 - 58 - F Unit#: [id number] Location/Status: SPDIMAM/REG CLI Mnemonic/Ordering Site: [facility] Ordering Physician: MAGGIE NICHOLE CNM [facility] Screening Digital - 09/21/23 - 1435 Report Status:Signed EXAM: [facility] Screening Digital EXAM DATE AND TIME: 09/21/2023 2:59 PM HISTORY: Annual screening COMPARISON: Multiple exams dating back to 2015 TECHNIQUE: Bilateral digital breast tomosynthesis was performed in the CCand MLO projections. Computer aided detection with NUOFFER 3D 3.1was employed. TISSUE DENSITY: b. There [...] Signed by: MAE DIOR MD Dic Date/Time: 09/22/237 Sign date/Time: 09/22/23 1428 Maggie Nichole CNM IMG BI PROCEDURES Final Resul t * Cervical Cancer Screening: HPV (06/23/2022) Pathologist [facility] Cervical Cancer Screening: HPV Negative, Abstracted Historical Provider HEALTH MAINTENANCE Final Result * Colonoscopy (10/30/2015) Pathologist [facility] Colonoscopy 10 yr fu Anatomical Region Laterality Modality Other Historical Provider HEALTH MAINTENANCE Final Result * Hepatitis C Screening (10/03/2015) Hepatitis C Screening negative Historical Provider HEALTH MAINTENANCE Final Result from Last 3 Months or Most Recently Relevant to Health Maintenance Insurance [facility] [address] [place] [address] Advance Directives * Full Code - Default [...] currently active code status orders. Care Teams Furnace Setter Relationship Specialty Start Date End Date Reyna Donis MD [address] [place] [address] [address] [place] [address] PCP - General Internal Medicine 03/02/22
--- OUTSIDE RECORDS SUMMARY | 2025-06-12 10:13 | XMS_ITS | Encounter Summary ---
Author Organization [facility] Address [address] [place] [address] Care Team Providers Care Wind Projects Supervisor Name Role Phone Reyna Donis MD Primary Care Provider Encounter Details Date Type Department Care Team (Late st Contact Info) Description 04/26/2025 Results Follow-Up Adult [facility] [address] [place] [phone] Mckinley Garcia, RN Social History Tobacco Use [...] care for your loved ones. For example, child welfare worker or elderly care for an older adult? [...] PM EST Office Visit Adult Medicine - [place] [address] [place] [phone] Reyna Donis MD [address] [place] [address] documented as of this encounter Visit Diagnoses Not on filedocumented in this encounter Additional Health Concerns Assessment Noted Time PHQ-9 Depression Total Score: 0 11/16/19 25 7:00 PM EDT documented as of this encounter Care Teams Wind Projects Supervisor Relationship Specialty Start Date End Date Reyna Donis MD [address] [address] PCP - General Internal Medicine 03/02/22 documented as of this encounter
== END 2025-06-12 10:39 | disposition home or self-care (01) ==
LOC: HO.HPHYS 09:41
PROVIDERS: PCP Family Medicine; Visit Provider Physician Assistant
DX: M25.811 Other specified joint disorders, right shoulder (principal); M70.61 Trochanteric bursitis, right hip
CPT/HCPCS: 20610

== ENCOUNTER → 2025-06-12 09:41 | Outpatient (BNVA) | payer OTHER, SELFPAY | PROVIDERS: PCP Family Medicine; Visit Provider Physician Assistant | DX: M70.61 Trochanteric bursitis, right hip (principal); M25.811 Other specified joint disorders, right shoulder | CPT/HCPCS: 20610; J2003; J3301 ==